=== PATIENT | female | born 2000 | race Caucasian/White ===

== ENCOUNTER 2024-02-25 12:23 | Emergency (ER) | payer OTHER ==
[~2024-02-25] VITALS: Ht 154.9 cm; Wt 109.1 kg
[2024-02-25 12:37] VITALS: BP 120/73; TEMP 98.6
[2024-02-25] MEDS ORDERED: NORCO 325 MG-51 TAB PO (13:44)
[2024-02-25 14:28] VITALS: PULSE 95
== END 2024-02-25 14:28 | disposition home or self-care (01) ==
LOC: COL.ER 12:23
DX: S82.64XA Nondisplaced fracture of lateral malleolus of right fibula, initial encounter for closed fracture (principal); W10.9XXA Fall (on) (from) unspecified stairs and steps, initial encounter; X50.1XXA Overexertion from prolonged static or awkward postures, initial encounter